=== PATIENT | female | born 1995 | race Caucasian/White ===

== ENCOUNTER 2024-12-04 23:51 | Emergency (ER) | payer OTHER, SELFPAY ==
[2024-12-04 23:56] VITALS: BP 143/78; PULSE 85; RESP 18; TEMP 36.7; O2SAT 99; BMI 51.5
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
--- OUTSIDE RECORDS SUMMARY | 2024-12-05 00:39 | XMS_ITS | Clinical Summary ---
Author Organization [facility] Address [address], [place] [address] Care Team Providers Care Ballistics Expert Name Role Phone Tawanna Wu MD Primary Care Provider Source Comments You are receiving this document as you are listed as the primary care provider,follow-up provider, or the patient has been referred to you for consultation.This is in compliance with the Medicare and[facility] EHR Incentive Program,which states Providers who transition their patient to another setting of careor provider of care or refers their patient to another provider of care shouldprovide summary care record for each transition of care or referral. [facility] Active Allergy Reactions Criticality Noted Date Comments Adhesive Rash 09/22/2019 Latex Edema,generalized 09/22/2019 Medications venlafaxine (EFFEXOR) 100 MG tablet Take 100 mg by mouth three times a day. Active traZODone (DESYREL) 100 MG tablet Take 100 mg by mouth daily at bedtime. Active ibuprofen (MOTRIN) 600 MG tablet Take 600 mg by mouth every 6 hours as needed for Pain. Active Active Problems No known active problems Social History Tobacco Use Types Packs/Day Years Used Date Smoking Tobacco: Never Smokeless Tobacco: Never Alcohol Use Standard Drinks/Week Comments Never 0 (1 standard drink = 0.6 oz pur e alcohol) AUDIT-C Answer Date Recorded Q1: How often do you have a drink containing alc ohol? Never 09/22/2019 Average Number of Drinks Not on file 020 Frequency of Binge Drinking Not on file 08/26 Comments Unknown Sex and Gender Information Value Date Recorded Sex Assigned at Not on file Legal Sex Female 8:55 PM CDT Gender Identity Not on file Sexual Orientation Not on file Last Filed Vital Signs Vital Sign Reading Time Taken Comments Blood Pressure 130/77 09/22/2019 9:00 PM CDT Pulse 80 09/22/2019 9:00 PM CDT Temperature 37.1 C (98.7 F) 09/22/2019 9:00 PM CDT Respiratory Rate 18 09/22/2019 9:00 PM CDT Oxygen Saturation 100% 09/22/2019 9:00 PM CDT Inhaled Oxygen Concentration - - Weight - - Height - - Body Mass Index - - Plan of Treatment Health Maintenance Due Date Last Done Comments Cervical Cancer Screening Due 1997 Hep C Screening (Preventive Services) 1997 HIV Screening (Preventive Services) 2013 Adult Preventive Visit 2015 HepB Vaccine (1) 2016 HepA Vaccine (2 of 2 - 2-dose series) 06/08/2017 12/06/2016, 01/16/2010 COVID-19 Vaccine ( season) 2024 10/13/2020, 09/15/2020 Influenza Vaccine (#1) 2025 , 03/10/2019, 01/22/2018, Additional history exists DTaP/Tdap/Td Vaccine (8 - Tdap) 02/20/2025 02/20/2015, 04/08/2009, 12/31/2001, Additional history exists Zoster/Shingles Vaccine (1 of 2) 2047 Hib Vaccine Completed 03/09/1998, 08/25, 1997, Additional history exists IPV (Polio) Vaccine Completed 12/31/2001, 03/09/1998, 1997, Additional history exists HPV Vaccine Completed 03/15/2010, 11/25, 04/08/2009 MCV4 Vaccine Aged Out 12/06/2016, 04/08/2009 No lo nger eligible based on patient's age to complete this topic Chlamydia Discontinued 09/22/2019 Meningococcal B Vaccine Aged Out No l onger eligible based on patient's age to complete this topic Pneumococcal Vaccine Aged Out No long er eligible based on patient's age to complete this topic Procedures Procedure Name Priority Date/Time Associated Diagnosis Comments CHLAMYDIA & GC (14 YEARS & OLDER) STAT 09/22/2019 10:11 PM CDT from Last 3 Months or Most Recently Relevant to Health Maintenance Results * CHLAMYDIA & GC (09/22/2019 10:11 PM CDT) Chlamydia Trachomatis STD Not Detected Not Detected 09/24/2019 11:41 AM CDT [facility] N. gonorrhoeae STD Not Detected Not Detected 09/24/2019 11:41 AM CDT [facility] Swab STD SPECIMEN FROM VAGINA / Unknown Non-blood Collection / Unknown 09/22/2019 10:11 PM CDT 09/22/2019 10:25 PM CDT Narrative [facility] - 09/24/2019 11:41 AM CDT Test performed by Molecular Detection Fidencio Tello MD LAB_1 Final Result [facility] [address] [phone] from Last 3 Months or Most Recently Relevant to Health Maintenance Insurance [facility] Care Teams Ballistics Expert Relationship Specialty Start Date End Date Tawanna Wu MD [address] [place] [address] PCP - General Urgent Care 09/22/19
--- OUTSIDE RECORDS SUMMARY | 2024-12-05 00:40 | XMS_ITS | Clinical Summary ---
Author Organization [facility] Address [address] [place] [id number] Care Team Providers Care Associate Professor Of Theology Name Role Phone Unavailable Primary Care Provider Unavailabl e Source Comments Patient records contain information from all sites at [facility]. For routine questions regarding patient records, call [phone] during business hours, M-F 8:00 AM - 5:00 PM Central Time. Record requests for emergency care only can be directed to [phone] at any time.[facility] Allergies Active Allergy Reactions Criticality Noted Date Comments Adhesive Rash 09/22/2019 Adhesive Tape-Silicones Rash 07/11/2019 Latex Hives (Reselect Reaction),Rash Medium 12/24/2018 Medications * This document contains information received from the source organization and may not represent a complete record from that organization. acetaminophen (TYLENOL) 500 mg tablet TAKE ONE TO TWO TABLETS BY MOUTH EVERY 6 HOURS IF NEEDED FOR PAIN. MAX ACETAMINOPHEN DOSE 4000MG / 24HRS 1 Active acetaminophen (TYLENOL) 500 mg tablet Take 500-1,000 mg by mouth. 1 Active calcium citrate-vitami n D3 315 mg-6.25 mcg (250 Unit) per tablet Take 2 tablets by mouth 2 (two) times a day with meals. 1 Active cholecalcifero l (VITAMIN D3) 125 mcg (5,000 Unit) tablet Take 5,000 Units by mouth. 1 Active medroxyPROGEST ERone (DEPO-PROVERA) 150 mg/mL injection Inject 150 mg intramuscularly. 2 Active melatonin 5 mg/15 mL liquid Take by mouth. 0 Active omeprazole (PriLOSEC) [address] capsule Take 40 mg by mouth. 1 Active prazosin (MINIPRESS) 2 mg capsule Take 6 mg by mouth. 1 Active traZODone (DESYREL) 100 mg tablet Take 100 mg by mouth. Active valACYclovir (VALTREX) 500 mg tablet Take 1 tablet by mouth daily. 2 Active venlafaxine (EFFEXOR) 100 mg tablet Take 100 mg by mouth. Active Trintellix 10 mg tablet TAKE ONE TABLET BY MOUTH EVERY DAY START 03/27/21 1 Active dextromethorph an HBr (VICKS DAYQUIL COUGH ORAL) Take by mouth. Activ e fluticasone propionate (FLONASE) 50 mcg/actuation nasal spray Administer 2 sprays into each nostril daily for 14 days. 16 g 2 Active albuterol 90 mcg/actuation inhaler Inhale 2 puffs every 6 (six) hours as needed for wheezing or shortness of breath for up to 14 days. 18 g 2 Active inhalational spacing device (Aerochamber MV) spacer 1 each as needed (sob). 1 each 2 Active oxyCODONE (ROXICODONE) 5 mg immediate release tabletIndicati ons:Acute Pain Take 1 tablet (5 mg total) by mouth every 4 (four) hours as needed for pain or severe pain or score 7-10 of 10 for up to 6 doses Indication: Acute Pain. 6 tablet 4 Active Active Problems No known active problems Social History Tobacco Use Types Packs/Day Years Used Date Smoking Tobacco: Never Smokeless Tobacco: Never Alcohol Use Standard Drinks/Week Comments Never 0 (1 standard drink = 0.6 oz pur e alcohol) Comments No Sex and Gender Information Value Date Recorded Sex Assigned at Not on file Legal Sex Female 2:05 PM CDT Gender Identity Not on file Sexual Orientation Not on file Last Filed Vital Signs Vital Sign Reading Time Taken Comments Blood Pressure 131/79 09/02/2023 10:45 AM CDT Pulse 69 09/02/2023 10:49 AM CDT Temperature 37 C (98.6 F) 07/10/2021 5:44 PM DOG TRAINER Respiratory Rate 18 06/01/2021 8:00 PM DOG TRAINER Oxygen Saturation 100% 09/02/2023 10:49 AM CDT Inhaled Oxygen Concentration - - Weight 134 kg (294 lb 15.6 oz) 07/10/2021 5:44 P M DOG TRAINER Height - - Body Mass Index - - Plan of Treatment Health Maintenance Due Date Last Done Comments Cervical/Vaginal Cancer Screening 1997 HIV Screening 1997 Hepatitis C Screening 1997 COVID-19 Vaccine ( season) 2024 10/03/2022, 06/05/2021, 10/13/2020, Additional history exists Depression Screening (Annual PHQ-2) 05/27/2024 DTaP,Tdap,and Td Vaccines (8 - Td or Tdap) 02/20/2025 02/20/2015, 04/08/2009, 12/31/2001, Additional history exists Influenza Vaccine (#1) 2025 , 03/12/2022, 06/14/2021, Additional history exists IPV Vaccines Completed 12/31/2001, 02/24, 1997, Additional history exists HPV Vaccines Completed 03/15/2010, 11/25, 04/08/2009 Hepatitis B Vaccines Completed 03/12/2020, 11/13/2019, 1997, Additional history exists Pneumococcal vaccine (0-49 years) Aged Out No longer eligible based on patient's age to complete this topic Insurance [place]
--- OUTSIDE RECORDS SUMMARY | 2024-12-05 00:40 | XMS_ITS | Clinical Summary ---
Author Organization [facility] Address [address] [place] [id number] Care Team Providers Care Merchandise Planning Manager Name Role Phone Bryce, Bettye Duran MD Primary Care Provider Chadd Gillette MD Unavailable [phone] Niyah Iyer RN Unavailable [phone] Unavailable [phone] Allergies Active Allergy Reactions Criticality Noted Date Comments Adhesive Tape-Silicones Rash,Contact Dermatitis 07/11/2019 Latex Rash Medium 12/24/2018 Medications omeprazole 20 mg tabletIndications :Chronic GERD Take 1 Tablet (20 mg) by mouth two times daily. twice daily before a meal 180 Tablet 3 04/10/20 24 Active Caplyta 42 mg capsule Take 42 mg by mouth. 08/25/19 25 Active valACYclovir 500 mg tablet Take 1 Tablet by mouth once daily. 08/18/19 25 Active OLANzapine 5 mg tablet 10/16/19 25 Active prazosin 2 mg capsule 10/16/19 25 Active tirzepatide (weight loss) (Zepbound) 7.5 mg/0.5 mL penIndications:Cl ass 3 severe obesity without serious comorbidity with body mass index (BMI) of 50.0 to 59.9 in adult, unspecified obesity type (HC) Inject 7.5 mg subcutaneous once weekly for 28 days. 2 mL 11/28/19 25 025 Active tirzepatide (weight loss) (Zepbound) 10 mg/0.5 mL penIndications:Cl ass 3 severe obesity without serious comorbidity with body mass index (BMI) of 50.0 to 59.9 in adult, unspecified obesity type (HC) Inject 10 mg subcutaneous once weekly for 28 days. 2 mL 12/28/19 25 025 Active tirzepatide (weight loss) (Zepbound) 12.5 mg/0.5 mL penIndications:Cl ass 3 severe obesity without serious comorbidity with body mass index (BMI) of 50.0 to 59.9 in adult, unspecified obesity type (HC) Inject 12.5 mg subcutaneous once weekly for 28 days. 2 mL 01/27/20 25 025 Active tirzepatide (weight loss) (Zepbound) 15 mg/0.5 mL penIndications:Cl ass 3 severe obesity without serious comorbidity with body mass index (BMI) of 50.0 to 59.9 in adult, unspecified obesity type (HC) Inject 15 mg subcutaneous once weekly. 6 mL 3 02/26/20 25 Active ondansetron 4 mg disintegrating tabletIndications :Nausea and vomiting, unspecified vomiting type Place 1 Tablet (4 mg) on the tongue every 8 hours if needed for Nausea/Vomiting. 20 Tablet 11/30/19 25 Active metFORMIN (GLUCOPHAGE) 500 mg tabletIndications :Antipsychotic-in duced weight gain Take 500 mg by mouth three times daily. 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 09/13/19 25 025 Discontin ued(*Med complete/ Regimen complete/ Level of care change) Zepbound 2.5 mg/0.5 mL pen 10/05/19 25 025 Discontin ued(*Medi cation adjustmen t) tirzepatide (weight loss) (Zepbound) 5 mg/0.5 mL penIndications:Cl ass 3 severe obesity without serious comorbidity with body mass index (BMI) of 50.0 to 59.9 in adult, unspecified obesity type (HC) Inject 5 mg subcutaneous once weekly for 28 days. 2 mL 10/29/19 25 025 azithromycin 250 mg tabletIndications :Pneumonia of both lungs due to infectious organism, unspecified part of lung Take 500 mg (2 tabs) by mouth on day 1, then 250 mg (1 tab) daily for days 2-5. 6 Tablet 11/28/19 25 025 Active Problems Patient Care Coordination No te Formatting of this note migh t be different from the original. SEE DOC FLOWSHEET-PIPELINE FOR NEW BARIATRIC COORDINATION NOTE. BERNARD,RN Problem Noted Date Diagnosed Date Acute cholecystitis 08/03/2024 Gastroesophageal reflux disease without esophagi tis 08/03/2024 Borderline intellectual functioning 08/01/2024 Arthritis of left sacroiliac joint 07/20/2024 Tear of left acetabular labrum 07/20/2024 s/p right tibia ORIF 01/03/2024 Painful orthopaedic hardware 01/03/2024 Dysmenorrhea 02/08/2023 Pap smear for cervical cancer screening 11/07/19 23 Overview (11/06/2022): 07/2022 NIL/HPV Negative Plan: Pap/HPV testing due in 5 years Morbid obesity with BMI of 45.0-49.9, adult 07/2019 Moderate episode of recurrent major depressive d isorder 05/08/2019 Cognitive developmental delay 03/26/2019 Adjustment disorder with mixed anxiety and depre ssed mood 02/24/2019 MATHEW (obstructive sleep apnea) 12/21/2018 Overview (08/01/2024): AHI 9.9/RDI 10.6, desats to 92% Fracture of shaft of right t ibia and fibula, closed, initial encounter 10/20/2018 Overview (08/01/2024): Added automatically from request for surgery [id number] Laceration of pinna 02/20/2015 Major depression 09/13/2013 Humerus distal fracture 2009 Unspecified constipation 02/27/2007 Sleep disturbance, unspecified 02/27/2007 ADHD OPPOSITIONAL DISORDER Encounters Date Type Department Care Team Description 12/02/2024 8:50 AM CDT Office Visit [facility] [address] [place] [address] Bettye Wu MD Abdominal Pain (Been going on for 2 week, nausea can't keep food down. Was given an antibiotic but has done nothing still having issues and things are not getting better. Pain is upper abdominal, mainly on left.); Urinary Problem (No warning, will just wet self.) 12/02/2024 Travel 11/29/2024 5:54 PM CDT - 11/29/2024 6:40 PM CDT Emergency [facility] [address] [place] [address] Reji Guidry PA Nausea and vomiting, unspecified vomiting type (Primary Dx) Discharge Disposition: Home Self Care 11/29/2024 Travel 11/27/2024 12:03 PM CDT - 11/27/2024 4:14 PM CDT Emergency [facility] [address] [place] [address] Logan Phillips PA Abdominal pain, unspecified abdominal location (Primary Dx); Gastroenteritis; Pneumonia of both lungs due to infectious organism, unspecified part of lung; Acute left-sided thoracic back pain Discharge Disposition: Home Self Care 11/27/2024 11:15 AM CDT Office Visit [facility] [address] [place] [address] Abdominal Pain (LUQ) 11/26/2024 7:16 PM CDT - 11/26/2024 10:10 PM CDT Emergency [facility] [address] [place] [address] Genaro Petty PA Left upper quadrant abdominal pain (Primary Dx); Nausea and vomiting, unspecified vomiting type; Diarrhea, unspecified type Discharge Disposition: Home Self Care 11/26/2024 Travel 10/28/2024 2:50 PM CDT Office Visit [facility] [address] [place] [address] Bettye Wu MD Form (Special [employer]ly[employer]ipics) 10/28/2024 Travel 10/18/2024 1:05 PM CDT Office Visit [facility] [address] [place] [address] Akosua Bates, JEFFREY Vaginal Itching (x 3 days, swollen labia, itchy) 10/18/2024 Travel 09/09/2024 11:00 AM CDT Office Visit [facility] [address] [place] [address] Shahida Sanford, RENYALDO Eye Exam 09/09/2024 Telephone [facility] [address] [place] [address] Bettye Wu MD Prior Authorization (tirzepatide (weight loss) (Zepbound) 2.5 mg/0.5 mL pen Approved 09/09/24-03/08/2025) 09/08/2024 1:04 PM CDT - 09/08/2024 4:00 PM CDT Emergency [facility] [address] [place] [address] Fanta Medrano PA Vomiting and diarrhea (Primary Dx); S/P cholecystectomy Discharge Disposition: Home Self Care 09/08/2024 12:35 PM CDT Office Visit [facility] [address] [place] [address] Akosua Bates NP Abdominal Pain 09/08/2024 Travel from Last 3 Months Immunizations Immunization Administration Dates Next Due COVID-19 VACCINE SPIKEVAX (M ODERNA 50MCG/0.5ML) 12YO+ PFS 04/10/2024 COVID-19 vaccine (Pfizer-Bio NTech 30mcg/0.3mL) 12YO+ BIVALENT PF, MDV 10/03/2022 DTP 03/09/1998 DTaP 12/31/2001, 8,1997,07/07,1997 HIB PRP-T (ActHIB,Hiberix) 03/09/1998,,1997,05/06 Hep B (Hepatitis B (Adult) R ecombinant Adjuvanted) 11/13/2019 Hepatitis A (Peds) 12/06/2016,01/16/2010 Hepatitis B (Adult) 03/11/2020, 8,1997,03/19 Hepatitis B (Peds) 1997,1997, 997 Hepatitis B, Unspecified 1997,1997,1 Hib Conjugate, Unspecified 03/09/1998,,1997,05/06 Human Papilloma Virus Vaccine 03/15/2010, 010,04/08/2009 INFLUENZA, IIV3 PF (AGE >= 6 MO) 04/10/2024 Inactivated Polio Vaccine 12/31/2001,,1997,05/06 Influenza Virus, Unspecified 01/22/2018,03/19/20 17,02/23/2015 Influenza, IIV3 (Age >=3 years) 03/19/2017,02/23 Influenza, IIV4 06/28/2023, 2,06/14/2021,03/11,03/10/2019,01/22/2018 Influenza, IIV4 (=>6mos) MDV 02/23/2015 Influenza,LAIV3 Live Intrana robbie (Flumist) 03/15/2010,02/10/2010 Influenza,LAIV4 Live Intrana robbie (Flumist) 03/15/2010,02/10/2010 MMR 01/05/2009,12/31/2001,03/09/1998 Meningococcal Vaccine (Menactra) 12/06/2016,03/27 Oral Polio Vaccine 03/09/1998 Polio Virus, Unspecified 12/31/2001,02/24,1997,05/06 Tdap 02/20/2015,04/08/2009 Varicella Vaccine 01/05/2009,03/09/1998 Family History Medical History Relation Name Comments Bipolar disorder Brother Bipolar disorder Father Heart attack Father Diabetes Maternal Grandfather Diabetes Maternal Grandmother Leukemia Maternal Grandmother Bipolar disorder Mother Diabetes Mother resolved with w eight loss surgery Genetic Other Father high cho lesterol Cancer Paternal Grandmother bladder Diabetes Paternal Grandmother Depression Sister Suicide Attempts Sister Cancer-breast No Family History Cancer-colon No Family History Cancer-ovarian No Family History Relation Name Status Comments Brother Alive Father Alive Maternal Grandfather Maternal Grandmother Mother Alive Other Paternal Grandmother Sister Social History Tobacco Use Types Packs/Day Years Used Date Smoking Tobacco: Former Cigarettes Smokeless Tobacco: Never Tobacco Cessation:Counseling Given: Yes Alcohol Use Standard Drinks/Week Comments Not Currently 0 (1 standard drink = 0.6 oz pur e alcohol) ocassionally PHQ-2 Answer Date Recorded PHQ-2 TOTAL SCORE 5 10/03/2022 Social Connections Answer Date Recorded Do you often feel lonely or isolated from those around you? 0 08/03/2024 Financial Resource Strain Answer Date R ecorded Difficulty of Paying Living Expenses 2 08/03/2024 Difficulty of Paying Living Expenses 1 08/03/2024 Food Insecurity Answer Date Recorded Do you worry your food will run out before you are able to buy more? 1 08/03/2024 Transportation Needs Answer Date Record ed Does lack of transportation keep you from medica l appointments? 1 08/03/2024 Does lack of transportation keep you from work, meetings or getting things that you need? 1 08/03/2024 Housing Stability Answer Date Recorded What is your housing situation today? 1 08/03/2024 Interpersonal Safety Answer Date Record ed Are you being hit, kicked, p ushed or yelled at (see row info)? No 11/29/2024 Interpersonal Safety Abuse 12 - 18 Not on file 11/29/2024 Interpersonal Safety Ambulatory Vulnerability No t on file 11/29/2024 Utilities Answer Date Recorded Do you have trouble paying f or utilities (for example, heat, electricity, water, phone)? 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 Gender Identity Not on file Sexual Orientation Not on file Obstetrics History Last Filed Vital Signs Vital Sign Reading Time Taken Comments Blood Pressure 135/80 12/02/2024 8:48 AM CDT Pulse 75 12/02/2024 8:48 AM CDT Temperature 36.4 C (97.6 F) 11/29/2024 5:57 PM CDT Respiratory Rate 16 11/29/2024 5:57 PM CDT Oxygen Saturation 97% 12/02/2024 8:48 AM CDT Inhaled Oxygen Concentration - - Weight 140.3 kg (309 lb 3.2 oz) 12/02/2024 8:48 AM CDT Height 162.6 cm (5' 4) 11/29/2024 5:57 PM CDT Body Mass Index 53.07 11/29/2024 5:57 PM CDT Plan of Treatment Upcoming Encounters Date Type Department Care Team (Late st Contact Info) Description 12/18/2024 11:20 AM CDT Office Visit [facility] [address] [place] [address] Bettye Wu MD [address] [place] [address] 12/25/2024 12:15 PM CDT Appointment [facility] [address] [facility] [address] [facility] [address] [place], [place] [phone] Nayely Fernandez, PT [address] [facility] [address] [place], [place] [phone] Health Maintenance Due Date Last Done Comments Depression screening for age 12+ 10/04/2023 10/03/2022, 06/07/2022, 03/27/2022, Additional history exists Influenza Vaccine (#1) 2025 , 06/28/2023, 03/12/2022, Additional history exists Tetanus booster 02/20/2025 02/20/2015, 04/08/2009 BMI (ht and wt on same day) for age 18+ 10/28/2025 10/28/2024, 09/03/2024, 04/10/2024, Additional history exists Pap test for age 21-65 10/04/2027 , 10/03/2022, 07/27/2019 Hepatitis B series for 19+ Completed 03/11, 11/13/2019, 1997, Additional history exists COVID-19 vaccine series Completed 04/10/20 24, 10/03/2022, 06/05/2021, Additional history exists HIV for age 15-65 Completed 09/03/2024, , 09/04/2021, Additional history exists Hepatitis C screening for age 18-79 Completed 09/03/2024, 09/04/2021, 10/30/2019 Pneumococcal series for age 6-49 Aged Out No longer eligible based on patient's age to complete this topic Medical Devices Explanted Type Area Sole Tier Device Identifier Shelf Expiration Date Model / Serial / Lot Explant Explanted:Qty: 1 on 02/04/2024 by Jose Julio MD at [facility] Right: Knee Procedures Procedure Name Priority Date/Time Associated Diagnosis Comments TROPONIN T (HS) ONE TIME Timed 11/27/2024 3:[address] CHEST PE STUDY STAT 11/27/2024 1:[address] ABDOMEN PELVIS W STAT 11/27/2024 1 :52 PM CDT URINALYSIS MICROSCOPIC STAT 11/27/2024 1:45 PM CDT URINE STAT 11/27/2024 1:45 PM CDT UA W/ SEDIMENT EXAM REFLEXED PER CRITERIA STAT 11/27/2024 1:45 PM CDT CBC WITH AUTO DIFFERENTIAL STAT 11/27/2024 1:09 PM CDT TROPONIN T (HS) ACUTE W/2HR REFLEX STAT 11/27/2024 1:09 PM CDT LACTATE VENOUS Today 11/27/2024 1:09 PM CDT LIPASE STAT 11/27/2024 1:09 PM CDT BASIC METABOLIC PANEL STAT 11/27/2024 1:09 PM CDT C-REACTIVE PROTEIN STAT 11/27/2024 1: 09 PM CDT CBC WITH AUTO DIFFERENTIAL STAT 11/27/2024 1:09 PM CDT D-DIMER,QUANTITATIVE STAT 11/27/2024 1:09 PM CDT EKG 12 LEAD STAT 11/27/2024 1:00 PM CDT URINALYSIS MICROSCOPIC STAT 11/26/2024 9:01 PM CDT UA W/ SEDIMENT EXAM REFLEXED PER CRITERIA STAT 11/26/2024 9:01 PM CDT CBC WITH AUTO DIFFERENTIAL STAT 11/26/2024 7:44 PM CDT C-REACTIVE PROTEIN STAT 11/26/2024 7: 44 PM CDT LIPASE STAT 11/26/2024 7:44 PM CDT LACTATE VENOUS Today 11/26/2024 7:44 PM CDT HEPATIC FUNCTION PANEL STAT 11/26/2024 7:44 PM CDT CBC WITH AUTO DIFFERENTIAL STAT 11/26/2024 7:44 PM CDT GC CHLAMYDIA TRACH PROBE Add On 10/18/2024 2:41 PM CDT Vaginal itching TRICHOMONAS, CATHY, AND BACTERIAL VAGINOSIS BY ERROL Routine 10/18/2024 2:41 PM CDT Vaginal itching CT ABDOMEN PELVIS W STAT 09/08/2024 2 :19 PM CDT RED CELL MORPHOLOGY STAT 09/08/2024 1 :54 PM CDT PLATELET ESTIMATE STAT 09/08/2024 1:5 4 PM CDT ,SERUM QUALITATIVE STAT 09/08/2024 1:54 PM CDT CBC WITH AUTO DIFFERENTIAL STAT 09/08/2024 1:54 PM CDT LIPASE STAT 09/08/2024 1:54 PM CDT HEPATIC FUNCTION PANEL STAT 09/08/2024 1:54 PM CDT BASIC METABOLIC PANEL STAT 09/08/2024 1:54 PM CDT CBC WITH AUTO DIFFERENTIAL STAT 09/08/2024 1:54 PM CDT ANTI HIV 1/2 Routine 09/03/2024 8:39 AM CDT Screen for STD (sexually transmitted disease) ANTI HCV Routine 09/03/2024 8:39 AM CDT Screen for STD (sexually transmitted disease) HPV HIGH RISK Routine 10/03/2022 1:16 PM CDT Screening for cervical cancer from Last 3 Months or Most Recently Relevant to Health Maintenance Results * TROPONIN T (HS) ONE TIME (11/27/2024 3:10 PM CDT) TROPONIN T HS <6 6-10 ng/L ng/L 11/27/2024 3:42 PM CDT [facility] Blood BLOOD SPECIMEN / Unknown Butterfly / Unknown 11/27/2024 3:10 PM CDT 11/27/2024 3:14 PM CDT us Logan PAZ CHEMISTRY Dary l Result [facility] [address] [place], [place] [id number] * CT CHEST PE STUDY (11/27/2024 1:53 PM CDT) Anatomical Region Laterality Modality CHEST, THORAX, HEART Computed To mography 11/27/2024 2:26 PM CDT Narrative 11/27/2024 2:26 PM CDT For Patients: As a result of the Cures Act, medical imaging exams and procedure reports are released immediately into your electronic medical record. You may view this report before your referring provider. If you have questions, please contact your health care provider. Indication: Low to intermediate probability of PE, positive D-dimer Technique: Volumetric multidetector CT images of the chest were obtained after the administration of IV contrast. 100 cc Omnipaque 350 low osmolar intravenous contrast Comparison: CT chest October 28, 2022 Findings: The thoracic inlet and thyroid gland are unremarkable. The thoracic aorta is nonaneurysmal. There is no central filling defect to suggest pulmonary embolism. There is no mediastinal, hilar or axillary adenopathy. Mild central bronchial thickening. There is minimal basilar atelectasis with mild scattered ground-glass and interstitial opacities which may represent mild pulmonary vascular congestion versus sequela of atypical infiltrates. There is no evidence of pulmonary mass or suspicious pulmonary nodule. The partially visualized upper abdominal viscera are within normal limits. The thoracic vertebral body heights remain intact alignment without significant degenerative change or acute osseous abnormality. Impression: 1. Mild nonspecific central bronchial thickening with scattered interstitial and ground-glass opacities throughout the bilateral inferior upper and lower lobes which may represent mild edema and/or developing atypical infiltrates. No evidence of pulmonary embolus. Please note that all CT scans at this facility use dose modulation, iterative reconstruction, and/or weight-based dosing when appropriate to reduce radiation dose to as low as reasonably achievable. Dictated by Pasquale Cordoba MD @ 11/27/2024 2:26:12 PM (Electronically Signed) Procedure Note Pasquale Cordoba MD - 11/27/2024 For Patients: As a result of the Century Cures Act, medical imagingexams and procedure reports are released immediately into your electronicmedical record. You may view this report before your referring provider.If you have questions, please contact your health care provider. Indication: Low to intermediate probability of PE, positive D-dimer Technique: Volumetric multidetector CT images of the chest were obtained after theadministration of IV contrast. 100 cc Omnipaque 350 low osmolar intravenous contrast Comparison: CT chest October 28, 2022 Findings: The thoracic inlet and thyroid gland are unremarkable. The thoracic aorta is nonaneurysmal. There is no central filling defect to suggest pulmonary embolism. There is no mediastinal, hilar or axillary adenopathy. Mild central bronchial thickening. There is minimal basilar atelectasis with mild scattered ground-glass andinterstitial opacities which may represent mild pulmonary vascularcongestion versus sequela of atypical infiltrates. There is no evidence of pulmonary mass or suspicious pulmonary nodule. The partially visualized upper abdominal viscera are within normallimits. The thoracic vertebral body heights remain intact alignment withoutsignificant degenerative change or acute osseous abnormality. Impression: 1. Mild nonspecific central bronchial thickening with scatteredinterstitial and ground-glass opacities throughout the bilateral inferiorupper and lower lobes which may represent mild edema and/or developingatypical infiltrates. No evidence of pulmonary embolus. Please note that all CT scans at this facility use dose modulation,iterative reconstruction, and/or weight-based dosing when appropriate toreduce radiation dose to as low as reasonably achievable. Dictated by Pasquale Cordoba MD @ 11/27/2024 2:26:12 PM (Electronically Signed) Logan PAZ CT Dary l Result * CT ABDOMEN PELVIS W (11/27/2024 1:52 PM CDT) Only the most recent of2 resultswithin the time period is included. Anatomical Region Laterality Modality Abdomen, Pelvis, AORTA, LIVER, SPLEEN Computed Tomography 11/27/2024 2:22 PM CDT Impressions 11/27/2024 2:22 PM CDT 1. Fluid-filled small bowel loops nondilated, nonspecific could be related to very mild enteritis. No obstruction. There is otherwise no acute findings in the abdomen or pelvis. Please note that all CT scans at this facility use dose modulation, iterative reconstruction, and/or weight-based dosing when appropriate to reduce radiation dose to as low as reasonably achievable. Dictated by Carolann Bass MD @ 11/27/2024 2:22:53 PM (Electronically Signed) Narrative 11/27/2024 2:22 PM CDT For Patients: As a result of the Cures Act, medical imaging exams and procedure reports are released immediately into your electronic medical record. You may view this report before your referring provider. If you have questions, please contact your health care provider. INDICATION: Left upper quadrant pain TECHNIQUE: CT abdomen and pelvis with 100 mL Omnipaque 300 intravenous contrast. COMPARISON: CT 09/08/2024 FINDINGS: Lower chest: Unremarkable. Liver: Normal in size and attenuation. No suspicious masses. Gallbladder and bile ducts: Cholecystectomy. Pancreas: Unremarkable. No mass or inflammation. Spleen: Normal in size. No masses. Adrenal glands: Normal in size. No nodules. Kidneys: Normal in size. No suspicious masses, stones, or hydronephrosis. GI tract: Appendix not seen. Fluid-filled small bowel loops nonspecific could represent very mild enteritis no obstruction. Vasculature: Abdominal aorta is normal in caliber. Lymph nodes: No lymphadenopathy. Peritoneum/Abdominal Wall: Unremarkable. No sign of mass or infiltration. No free air or significant free fluid. Pelvis: Rim enhancing small right ovarian cyst probably reflects a corpus luteum cyst. Bones: Unremarkable for age. Procedure Note Carolann Bass MD - 11/27/2024 For Patients: As a result of the Cures Act, medical imagingexams and procedure reports are released immediately into your electronicmedical record. You may view this report before your referring provider.If you have questions, please contact your health care provider. INDICATION: Left upper quadrant pain TECHNIQUE: CT abdomen and pelvis with 100 mL Omnipaque 300 intravenous contrast. COMPARISON: CT 09/08/2024 FINDINGS: Lower chest: Unremarkable. Liver: Normal in size and attenuation. No suspicious masses. Gallbladder and bile ducts: Cholecystectomy. Pancreas: Unremarkable. No mass or inflammation. Spleen: Normal in size. No masses. Adrenal glands: Normal in size. No nodules. Kidneys: Normal in size. No suspicious masses, stones, or hydronephrosis. GI tract: Appendix not seen. Fluid-filled small bowel loops nonspecificcould represent very mild enteritis no obstruction. Vasculature: Abdominal aorta is normal in caliber. Lymph nodes: No lymphadenopathy. Peritoneum/Abdominal Wall: Unremarkable. No sign of mass or infiltration.No free air or significant free fluid. Pelvis: Rim enhancing small right ovarian cyst probably reflects a corpusluteum cyst. Bones: Unremarkable for age. IMPRESSION: 1. Fluid-filled small bowel loops nondilated, nonspecific could be relatedto very mild enteritis. No obstruction. There is otherwise no acutefindings in the abdomen or pelvis. Please note that all CT scans at this facility use dose modulation,iterative reconstruction, and/or weight-based dosing when appropriate toreduce radiation dose to as low as reasonably achievable. Dictated by Carolann Bass MD @ 11/27/2024 2:22:53 PM (Electronically Signed) Logan PAZ CT Dary l Result * (ABNORMAL) URINALYSIS MICROSCOPIC (11/27/2024 1:45 PM CDT) Only the most recent of2 resultswithin the time period is included. RBC 0-2 0-2, None Seen /HPF 11/27/2024 2:00 PM CDT [facility] WBC 0-2 0-2, 3-5, None Seen /HPF 11/27/2024 2:00 PM CDT [facility] BACTERIA Moderate(A ) None Seen, Rare, Few Bacteria/ HPF 11/27/2024 2:00 PM CDT [facility] EPITHELIAL CELLS Moderate(A ) None Seen, Few Epi/HPF 11/27/2024 2:00 PM CDT [facility] LABORATORY Urine URINE SPECIMEN / Unknown Non-Blood / Unknown 11/27/2024 1:45 PM CDT 11/27/2024 1:51 PM CDT Logan PAZ URINE Dary l Result [facility] [address] [place] [address] * (ABNORMAL) UA W/ SEDIMENT EXAM REFLEXED PER CRITERIA (11/27/2024 1:45 PM CDT) Only the most recent of2 resultswithin the time period is included. COLOR Yellow Yellow Color 11/27/2024 1:55 PM CDT [facility] CLARITY Clear Clear Clarity 11/27/2024 1:55 PM T [facility] SPECIFIC GRAVITY,URINE <=1.005(A) 1.010, 1.015, 1.020, 1.025 11/27/2024 1:55 PM [facility] PH,URINE 6.0 6.0, 7.0, 8.0, 5.5, 6.5, 7.5, 8.5 11/27/2024 1:55 PM [facility] UROBILINOGEN, QUALITATIVE Normal Normal EU/dl 11/27/2024 1:55 PM [facility] PROTEIN, URINE Negative Negative mg/dL 11/27/2024 1:55 PM T [facility] GLUCOSE, URINE Negative Negative mg/dL 11/27/2024 1:55 PM [facility] KETONES,URINE Negative Negative mg/dL 11/27/2024 1:55 PM [facility] BILIRUBIN,URI NE Negative Negative 11/27/2024 1:55 PM [facility] OCCULT BLOOD,URINE Small(A) Negative 11/27/2024 1:55 PM [facility] NITRITE Negative Negative 11/27/2024 1:55 PM T [facility] LEUKOCYTE ESTERASE Negative Negative 11/27/2024 1:55 PM [facility] Urine URINE SPECIMEN / Unknown Non-Blood / Unknown 11/27/2024 1:45 PM CDT 11/27/2024 1:51 PM CDT us Logan PAZ URINE Dary l Result [facility] [address] [place] [address] * URINE (11/27/2024 1:45 PM CDT) ,URIN E Negative Negative 11/27/2024 1:55 PM CDT [facility] Urine URINE SPECIMEN / Unknown Non-Blood / Unknown 11/27/2024 1:45 PM CDT 11/27/2024 1:51 PM CDT Logan PAZ URINE Dary l Result [facility] [address] [place] [address] * TROPONIN T (HS) ACUTE W/2HR REFLEX (11/27/2024 1:09 PM CDT) [facility] TROPONIN T HS 6 6-10 ng/L ng/L 11/27/2024 1:32 PM CDT [facility] Blood BLOOD SPECIMEN / Unknown IV Start / Unknown 11/27/2024 1:09 PM CDT 11/27/2024 1:12 PM CDT Narrative [facility] - 11/27/2024 1:32 PM CDT hs-cTnT (Elecsys Troponin T Gen 5) concentration (s) above the sex-specific 99th percentile (16 ng/L or greater for males or 11 ng/L or greater for females) are indicative of myocardial injury. If initial hs-cTnT <=100 ng/L at presentation, a 0h/2h ABSOLUTE (ng/L) delta change (rising or falling) of >=10 ng/L suggests a significant change, whereas a 0h/2h delta change <=3 ng/L suggests no significant change. If initial hs-cTnT >100 ng/L at presentation, a 0h/2h/ RELATIVE (percent, %) delta change of 20% is suggested to distinguish patients with acute vs. chronic myocardial injury. There are multiple etiologies that can cause hs-cTnT increases above the 99th percentile (myocardial injury) other than acute myocardial infarction. Clinical context and careful clinical evaluation are critical for diagnosis and risk-stratification. The diagnosis of acute myocardial infarction requires a rising and/or falling pattern in hs-cTnT concentrations with at least one value above the sex-specific 99th percentile PLUS at least one of the following clinical criteria: ischemic symptoms, new or presumed new significant ST-T wave changes or new LBBB, development of pathological Q waves, imaging evidence of new loss of viable myocardium or new regional wall motion abnormality, or identification of intracoronary atherothrombosis or an acute angiographic culprit on coronary angiography. In appropriate low-risk patients with a non-ischemic electrocardiogram without active chest pain with a symptom onset >3-hours without recurrence, a single initial hs-cTnT<6 ng/L identifies patient with a very low risk in emergency department patient population. Logan PAZ CHEMISTRY Dary l Result [facility] [address] [place] [address] * (ABNORMAL) CBC WITH AUTO DIFFERENTIAL (11/27/2024 1:09 PM CDT) Only the most recent of3 resultswithin the time period is included. WHITE BLOOD COUNT 10.3 4.5 - 11.0 thou/cu mm 11/27/2024 1:15 PM [facility] RED BLOOD COUNT 4.67 4.00 - 5.20 mil/cu mm 11/27/2024 1:15 PM [facility] HEMOGLOBIN 12.1 12.0 - 16.0 g/dL 11/27/2024 1:15 PM [facility] HEMATOCRIT 37.4 33.0 - 51.0 % 11/27/2024 1:15 PM [facility] MCV 80 80 - 100 fL 11/27/2024 1:15 PM [facility] MCH 25.9(L) 26.0 - 34.0 pg 11/27/2024 1:15 PM [facility] MCHC 32.4 32.0 - 36.0 g/dL 11/27/2024 1:15 PM [facility] RDW 13.9 11.5 - 15.5 % 11/27/2024 1:15 PM [facility] PLATELET COUNT 268 140 - 440 thou/cu mm 11/27/2024 1:15 PM [facility] MPV 10.9 6.5 - 11.0 fL 11/27/2024 1:15 PM [facility] % NEUT 63.7 % 11/27/2024 1:15 PM [facility] % LYMPH 26.6 % 11/27/2024 1:15 PM [facility] % MONO 6.7 % 11/27/2024 1:15 PM [facility] % EOS 2.6 % 11/27/2024 1:15 PM [facility] % BASO 0.4 % 11/27/2024 1:15 PM [facility] ABSOLUTE NEUTROPHILS 6.6 1.7 - 7.0 thou/cu mm 11/27/2024 1:15 PM [facility] ABSOLUTE LYMPHOCYTES 2.7 0.9 - 2.9 thou/cu mm 11/27/2024 1:15 PM [facility] ABSOLUTE MONOCYTES 0.7 <0.9 thou/cu mm 11/27/2024 1:15 PM [facility] ABSOLUTE EOSINOPHILS 0.3 <0.5 thou/cu mm 11/27/2024 1:15 PM [facility] ABSOLUTE BASOPHILS 0.0 <0.3 thou/cu mm 11/27/2024 1:15 PM [facility] Blood BLOOD SPECIMEN / Unknown IV Start / Unknown 11/27/2024 1:09 PM CDT 11/27/2024 1:12 PM T us Logan PAZ HEMATOLOGY Dary l Result [facility] [address] [place] [address] * LACTATE VENOUS (11/27/2024 1:09 PM CDT) Only the most recent of2 resultswithin the time period is included. LACTATE,VENOUS 0.8 0.5 - 2.0 mmol/L 11/27/2024 1:19 PM CDT [facility] Blood BLOOD SPECIMEN / Unknown IV Start / Unknown 11/27/2024 1:09 PM CDT 11/27/2024 1:12 PM CDT Logan PAZ CHEMISTRY Dary l Result Performing Organization Address City/[facility]/ZIP Co de Phone Number [facility] [address] [place] [address] * (ABNORMAL) C-REACTIVE PROTEIN (11/27/2024 1:09 PM CDT) Only the most recent of2 resultswithin the time period is included. Pathologist [facility] [place] C-REACTIVE PROTEIN 2.2(H) <0.5 mg/dL 11/27/2024 1:32 PM CDT [facility] Blood BLOOD SPECIMEN / Unknown IV Start / Unknown 11/27/2024 1:09 PM CDT 11/27/2024 1:12 PM CDT Logan PZA CHEMISTRY Dary l Result Performing Organization Address City/[facility]/ZIP Co de Phone Number [facility] [address] [place] [address] * (ABNORMAL) D-DIMER,QUANTITATIVE (11/27/2024 1:09 PM CDT) D-DIMER,QUANTI TATIVE 0.84(H) <=0.49 FEU mcg/mL 11/27/2024 1:22 PM CDT [facility] Blood BLOOD SPECIMEN / Unknown IV Start / Unknown 11/27/2024 1:09 PM CDT 11/27/2024 1:12 PM CDT Narrative [facility] - 11/27/2024 1:22 PM CDT The cut off value for exclusion of Deep Vein Thrombosis and / or Pulmonary Embolism is 0.50 FEU mcg/mL For patients greater than 50 years of age the upper limit is age dependent and was calculated with the formula: (PATIENT AGE x 0.01) FEU mcg/mL = Upper limit of normal range Logan PAZ HEMATOLOGY Dary l Result Performing Organization Address [facility] Co de Phone Number [facility] [address] [place] [address] * LIPASE (11/27/2024 1:09 PM CDT) Only the most recent of3 resultswithin the time period is included. [facility] LIPASE 15.4 13.0 - 60.0 IU/L 11/27/2024 1:32 PM T [facility] Blood BLOOD SPECIMEN / Unknown IV Start / Unknown 11/27/2024 1:09 PM CDT 11/27/2024 1:12 PM CDT Logan PAZ CHEMISTRY Dary l Result Performing Organization Address [facility] Co de Phone Number [facility] [address] [place] [address] * BASIC METABOLIC PANEL (11/27/2024 1:09 PM CDT) Only the most recent of2 resultswithin the time period is included. [facility] SODIUM 138 136 - 145 mmol/L 11/27/2024 1:32 PM CDT [facility] POTASSIUM 4.3 3.5 - 5.1 mmol/L 11/27/2024 1:32 PM T [facility] CHLORIDE 104 98 - 107 mmol/L 11/27/2024 1:32 PM T [facility] CO2,TOTAL 23 22 - 29 mmol/L 11/27/2024 1:32 PM T [facility] ANION GAP 11 5 - 18 11/27/2024 1:32 PM CDT [facility] GLUCOSE 93 70 - 99 mg/dL 11/27/2024 1:32 PM CDT [facility] CALCIUM 8.9 8.8 - 10.4 mg/dL 11/27/2024 1:32 PM CDT [facility] Comment: Reference ranges for this test were updated on 03/31/2024 to reflect our healthy population more accurately. Reference range changes are not retroactively applied to results, but previous results using the same methodology can be interpreted in the context of the new reference range. BUN 9 6 - 20 mg/dL 11/27/2024 1:32 PM CDT [facility] CREATININE 0.77 0.50 - 0.90 mg/dL 11/27/2024 1:32 PM CDT [facility] BUN/CREAT RATIO 12 10 - 20 1:32 PM CDT [facility] eGFR >90 >90 mL/min/1.7 3m2 11/27/2024 1:32 PM CDT [facility] Comment:As of 2021, eG FR is calculated by the CKD-EPI creatinine equation without race adjustment. eGFR can be influenced by muscle mass, exercise, and diet. The reported eGFR is an estimation only and is only applicable if the renal function is stable. Blood BLOOD SPECIMEN / Unknown IV Start / Unknown 11/27/2024 1:09 PM CDT 11/27/2024 1:12 PM CDT Logan PAZ CHEMISTRY Dary l Result [facility] [address] [place] [address] * EKG 12 LEAD (11/27/2024 1:00 PM CDT) Interpretation Normal sinus rhythm Normal ECG When compared with ECG of 08-Feb-2022 00:14, No significant change was found BEYOND NOW Ventricular Rate 64 BPM BEYOND NOW Atrial Rate 64 BPM BEYOND NOW P-R Interval 156 ms BEYOND NOW QRS Duration 80 ms BEYOND NOW QT 412 ms BEYOND NOW QTc 425 ms BEYOND NOW P [place] 8 degrees BEYOND NOW R [place] 35 degrees BEYOND NOW T [place] 17 degrees BEYOND NOW 11/27/2024 1:00 PM CDT 11/27/2024 6:02 PM CDT Logan PAZ EKG ORD Dary l Result [facility] [place], [place] * (ABNORMAL) HEPATIC FUNCTION PANEL (11/26/2024 7:44 PM CDT) Only the most recent of2 resultswithin the time period is included. ALBUMIN 4.2 4.0 - 4.9 g/dL 11/26/2024 8:06 PM T [facility] PROTEIN,TOTAL 7.3 6.0 - 8.0 g/dL 11/26/2024 8:06 PM T [facility] BILIRUBIN,TOTAL 0.3 0.0 - 1.2 mg/dL 11/26/2024 8:06 PM [facility] BILIRUBIN,DIRECT 0.2 0.0 - 0.2 mg/dL 11/26/2024 8:06 PM [facility] BILIRUBIN,INDIRE CT 0.1(L) 0.2 - 0.8 mg/dL 11/26/2024 8:06 PM T [facility] ALK PHOSPHATASE 103 35 - 104 IU/L 11/26/2024 8:06 PM [facility] ALT (SGPT) 38(H) 10 - 35 IU/L 11/26/2024 8:06 PM T [facility] AST (SGOT) 43(H) 10 - 35 IU/L 11/26/2024 8:06 PM T [facility] Blood BLOOD SPECIMEN / Unknown Butterfly / Unknown 11/26/2024 7:44 PM CDT 11/26/2024 7:46 PM CDT Genaro PAZ CHEMISTRY Fin al Result [facility] [address] [place] [address] * (ABNORMAL) TRICHOMONAS, CATHY, AND BACTERIAL VAGINOSIS BY ERROL (10/18/2024 2:41 PM CDT) CATHY SPECIES Positive(A) Negative 10/20/19 1:39 PM CDT [facility] CATHY GLABRATA Positive(A) Negative 10/19/2024 1:39 PM CDT [facility] TRICHOMONAS VVA Negative Negative 1:39 PM CDT [facility] BACTERIAL VAGINOSIS Negative Negative 10/19/2024 1:39 PM CDT [facility] Other VAGINAL SWAB / Unknown Non-Blood / Unknown 10/18/2024 2:41 PM CDT 10/18/2024 3:32 PM CDT Akosua Bates NP MICROBIOLOGY Final Result Performing Organization Address City/[facility]/ZIP Co de Phone Number [facility] [address] [place] [address], [place] * GC CHLAMYDIA TRACH PROBE [[id number]] - vaginal (10/18/2024 2:41 PM CDT) Pathologist [facility] [place] CHLAMYDIA PROBE Negative 1:56 PM CDT [facility] N GONORRHOEAE PROBE Negative 10/19/2024 1:56 PM CDT [facility] Other VAGINAL SWAB / Unknown Non-Blood / Unknown 10/18/2024 2:41 PM CDT 10/18/2024 3:32 PM CDT us Akosua Bates NP MICROBIOLOGY Final Result [facility] [address] [place] [address], [place] * RED CELL MORPHOLOGY (09/08/2024 1:54 PM CDT) Pathologist [facility] [place] RBC COMMENT RBC morphology appears normal RBC morphology appears normal, RBC morphology within normal limits for newborns. 09/08/2024 2:30 PM CDT [facility] LARGE PLATELETS Present 09/08/2024 2:30 PM CDT [facility] Blood BLOOD SPECIMEN / Unknown Butterfly / Unknown 09/08/2024 1:54 PM CDT 09/08/2024 1:58 PM CDT Fanta PAZ HEMATOLOGY Final Result [facility] [address] [place] [address] * (ABNORMAL) PLATELET ESTIMATE (09/08/2024 1:54 PM CDT) [facility] PLATELET ESTIMATE Platelets are clumped and appear adequate in number(A) Adequate, No estimate 09/08/2024 2:30 PM CDT [facility] Blood BLOOD SPECIMEN / Unknown Butterfly / Unknown 09/08/2024 1:54 PM CDT 09/08/2024 1:58 PM CDT Fanta PAZ HEMATOLOGY Final Result Performing Organization Address [facility]/ZIP Co de Phone Number [facility] [address] [place] [address] * ,SERUM QUALITATIVE (09/08/2024 1:54 PM CDT) [facility] ,SERU M Negative Negative 09/08/2024 2:11 PM CDT [facility] Blood BLOOD SPECIMEN / Unknown Butterfly / Unknown 09/08/2024 1:54 PM CDT 09/08/2024 1:58 PM CDT Fanta PAZ CHEMISTRY Final Result Performing Organization Address City/[facility]/ZIP Co de Phone Number [facility] [address] [place] [address] * ANTI HCV (09/03/2024 8:39 AM CDT) HEPATITIS C ANTIBODY NON-REACTI VE NON-REACT ZAY [facility] Comment: HCV antibody was non-reactive. There is no laboratory evidence of HCV infection. In most cases, no further action is required. However, if recent HCV exposure is suspected, a test for HCV RNA (test code 35948) is suggested. For additional information please refer to http://[employer]/faq/ROX41j3 (This link is being provided for informational/ educational purposes only.) Blood BLOOD SPECIMEN / Unknown 09/03/2024 8:39 AM CDT 09/03/2024 8:41 AM CDT Bettye Wu MD SEND OUTS Final R esult [facility] [employer] [facility] [address] [place] [address], [email or web address] [address] [place] [address] * ANTI HIV 1/2 (09/03/2024 8:39 AM CDT) Pathologist [facility] [place] HIV AG/AB, 4TH GEN NON-REACT ZAY NON-REACT ZAY [facility] Comment: HIV-1 antigen and HIV-1/HIV-2 antibodies were not detected. There is no laboratory evidence of HIV infection. PLEASE NOTE: This information has been disclosed to you from records whose confidentiality may be protected by state law. If your state requires such protection, then the state law prohibits you from making any further disclosure of the information without the specific written consent of the person to whom it pertains, or as otherwise permitted by law. A general authorization for the release of medical or other information is NOT sufficient for this purpose. For additional information please refer to http://[employer]/faq/TTQ026 (This link is being provided for informational/ educational purposes only.) The performance of this assay has not been clinically validated in patients less than 2 years old. Blood BLOOD SPECIMEN / Unknown 09/03/2024 8:39 AM CDT 09/03/2024 8:41 AM CDT Bettye Wu MD SEND OUTS Final R esult Performing Organization Address City/[facility]/ZIP Co de Phone Number [facility] [employer] [facility] [address] [place] [address], [email or web address] [address] [place] [address] * HPV HIGH RISK (10/03/2022 1:16 PM CDT) TYPE 16 Negative Negative 10/06/2022 8:06 AM CDT [facility] TYPE 18 Negative Negative 10/06/2022 8:06 AM CDT [facility] OTHER HIGH RISK TYPES Negative Negative 10/06/2022 8:06 AM CDT [facility] Other (Cervical) Non-Blood / Unknown 10/03/2022 1:16 PM CDT 10/04/2022 3:11 PM CDT Narrative [facility] - 10/06/2022 8:06 AM CDT HPV types 16, 18, 31, 33, 35, 39, 45, 51, 52, 56, 58, 59, 66 and 68 DNA were undetectable or below the pre-set threshold. Methodology: Elma Vidya 4800 HPV Test Bettye Wu MD MICROBIOLOGY Final R esult [facility] [address] [place] [address], [place] from Last 3 Months or Most Recently Relevant to Health Maintenance Insurance MEDICAID #[id number] [facility] [place] [address] MEDICAID Advance Directives * Full Code (Latest Code Status on File) Date Activated Date Inactivated Comments 08/03/2024 6:51 PM 08/05/2024 1:10 PM Question Answer Comments Code Status Discussion: Reviewed Preferences * Full Code Date Activated Date Inactivated Comments 02/04/2024 1:20 PM 02/04/2024 11:10 PM Question Answer Comments Code Status Discussion: Unable to Assess Preferences, Provider to review later * Full Code Date Activated Date Inactivated Comments 02/08/2023 7:34 AM 02/09/2023 2:29 AM Question Answer Comments Code Status Discussion: Reviewed Preferences * Full Code Date Activated Date Inactivated Comments 06/01/2020 6:24 AM 06/01/2020 5:25 PM Question Answer Comments Code Status Discussion: Discussed Care Teams Merchandise Planning Manager Relationship Specialty Start Date End Date Bettye Wu MD [facility] [place] [facility] [address] PCP - General Family Practice 01/23/23 Chadd Gillette MD [address] [id number] Consulting Physician Surgery - General 08/29/23 Niyah Iyer RN [address] [id number] Map Drafter Registered Nurse 08/29/[address] [place] [address] [place] [address] Janitor And Cleaner 08/29/23
[2024-12-05 00:53] VITALS: BP 135/78; PULSE 84; RESP 18; TEMP 36.7; O2SAT 99
[2024-12-05 00:54] VITALS: BP 135/78; PULSE 84; RESP 18; TEMP 36.7
== END 2024-12-05 00:54 | disposition home or self-care (01) ==
PROVIDERS: Emergency Provider Internal Medicine; PCP Family Medicine
DX: S00.93XA Contusion of unspecified part of head, initial encounter (principal); V43.52XA Car driver injured in collision with other type car in traffic accident, initial encounter; W22.11XA Striking against or struck by driver side automobile airbag, initial encounter
CPT/HCPCS: 70450; 72125; 99283; 99284

== ENCOUNTER 2025-01-22 07:10 | Outpatient (CLI) | payer MEDICARE, MEDICAID, SELFPAY ==
--- NOTE | 2025-01-22 09:25 | P.ANES_ITS ---
Anesthesia Charges Start Date/Time Anesthesia Start Date: 01/22/25 Anesthesia Start Time: 09:02 Stop Date/Time Anesthesia Stop Date: 01/22/25 Anesthesia Stop Time: 09:19 Coding CPT Codes CPT Codes: ANES UPR GI NDSC PX NOS - 46235 ([id number]) P3 - PATIENT W/SEVERE SYS DISEASE, QX - TREAD BOOKER SVC W/ MD MED DIRECTION, QK - ASSISTANT MANAGER AIRSIDE OPERATIONS 2-4 CNCRNT ANES PROC
--- NOTE | 2025-01-22 09:25 | W.ANESCHARGE ---
Anesthesia Charges Start Date/Time Anesthesia Start Date: 01/22/25 Anesthesia Start Time: 09:02 Stop Date/Time Anesthesia Stop Date: 01/22/25 Anesthesia Stop Time: 09:19 Coding CPT Codes CPT Codes: ANES UPR GI NDSC PX NOS - 50888 ([id number]) P3 - PATIENT W/SEVERE SYS DISEASE, QX - HOSPICE ADMITTING CLERK SVC W/ MD MED DIRECTION, QK - POURING CRANE OPERATOR 2-4 CNCRNT ANES PROC
--- NOTE | 2025-01-22 10:23 | P.ANES_ITS ---
Anesthesia Charges Start Date/Time Anesthesia Start Date: 01/22/25 Anesthesia Start Time: 09:02 Stop Date/Time Anesthesia Stop Date: 01/22/25 Anesthesia Stop Time: 09:19 Coding CPT Codes CPT Codes: ANES UPR GI NDSC PX NOS - 22967 ([id number]) QK - RECRUITMENT INTERNSHIP 2-4 CNCRNT ANES PROC, QX - PRESTIDIGITATOR SVC W/ MD MED DIRECTION, P3 - PATIENT W/SEVERE SYS DISEASE
--- NOTE | 2025-01-22 10:23 | W.ANESCHARGE ---
Anesthesia Charges Start Date/Time Anesthesia Start Date: 01/22/25 Anesthesia Start Time: 09:02 Stop Date/Time Anesthesia Stop Date: 01/22/25 Anesthesia Stop Time: 09:19 Coding CPT Codes CPT Codes: ANES UPR GI NDSC PX NOS - 06366 ([id number]) QK - EMERGENCY MEDICINE NURSE PRACTITIONER 2-4 CNCRNT ANES PROC, QX - CLINIC NURSE SVC W/ MD MED DIRECTION, P3 - PATIENT W/SEVERE SYS DISEASE
== END 2025-01-22 07:11 | disposition home or self-care (01) ==
LOC: OP CLINIC 07:14
PROVIDERS: PCP Family Medicine; Visit Provider Internal Medicine Gastroenterology
DX: R10.13 Epigastric pain (principal); K92.0 Hematemesis; K31.89 Other diseases of stomach and duodenum; K21.9 Gastro-esophageal reflux disease without esophagitis; K58.1 Irritable bowel syndrome with constipation
CPT/HCPCS: 00731; 43239; 88305; 88342; A9270; J2704; J3010